=== PATIENT | female | born 1970 | race Caucasian/White ===

== ENCOUNTER 2022-09-03 13:37 | Emergency (ER) | payer BC ==
[2022-09-03 13:57] LABS: BASOPHILS ABSOLUTE AUTO 0.1 x10-3/uL (0.0-0.1); BASOPHILS PERCENT AUTO 0.8 % (0.2-1.5); EOSINOPHILS ABSOLUTE AUTO 0.2 x10-3/uL (0.0-0.8); EOSINOPHILS PERCENT AUTO 3.3 % (0.6-8.1); HEMATOCRIT 40.9 % (34.2-48.2); HEMOGLOBIN 14.1 g/dL (11.4-15.5); LYMPHOCYTES ABSOLUTE AUTO 1.8 x10-3/uL (1.0-4.4); LYMPHOCYTES PERCENT AUTO 25.8 % (18.4-52.1); MEAN CORPUSCULAR HEMOGLOBIN 30.5 pg (23.9-33.9); MEAN CORPUSCULAR HGB CONC 34.5 g/dL (31.9-34.8); MEAN CORPUSCULAR VOLUME 88.4 fL (76.7-100.5); MEAN PLATELET VOLUME 7.8 fL (7.1-12.4); MONOCYTES ABSOLUTE AUTO 0.5 x10-3/uL (0.3-1.0); MONOCYTES PERCENT AUTO 6.7 % (4.4-15.7); NEUTROPHILS ABSOLUTE AUTO 4.5 x10-3/uL (1.5-6.3); NEUTROPHILS PERCENT AUTO 63.4 % (30.8-76.2); PLATELET COUNT,PLT 257 x10(3)uL (151-488); RED BLOOD CELL COUNT 4.62 x10(6)uL (3.60-5.20)
[2022-09-03 14:01] LABS: BLOOD UREA NITROGEN,BUN 13 mg/dL (7-18); BUN/CREATININE RATIO 14.4 (9-20); CARBON DIOXIDE,CO2 23 mmol/L (21-32); CHLORIDE,CL 105 mmol/L (100-110); CREATININE 0.9 mg/dL (0.55-1.02); ESTIMATED GFR 77 mL/min (>60); GLUCOSE RANDOM 176 mg/dL (80-116); POTASSIUM,K 3.9 mmol/L (3.5-5.3); SODIUM,NA 139 mmol/L (135-145)
[2022-09-03 14:07] LABS: A/G RATIO 1.1; ALANINE AMINOTRANSFERASE,ALT 36 U/L (12-36); ALBUMIN 3.9 g/dL (3.5-5.2); ALKALINE PHOSPHATASE 86 IU/L (56-112); ASPARTATE AMNIOTRANSFERASE,AST 22 IU/L (5-25); BILIRUBIN TOTAL 0.5 mg/dL (0.1-1.3); PROTEIN TOTAL,TP 7.4 g/dL (6.0-8.0)
[2022-09-03 15:51] VITALS: BP 108/69; PULSE 84
== END 2022-09-03 15:42 | disposition home or self-care (01) ==
LOC: FB.ED 13:37
DX: R55 Syncope and collapse (principal); I44.7 Left bundle-branch block, unspecified; I10 Essential (primary) hypertension; E66.9 Obesity, unspecified; Z68.30 Body mass index [BMI] 30.0-30.9, adult
CPT/HCPCS: 36415; 73562-LT; 80053; 84484; 85025; 93005; 99284